=== PATIENT | female | born 1990 | race Caucasian/White ===

== ENCOUNTER 2018-05-15 23:41 | Inpatient (IN) ==
[2018-05-16] MEDS ORDERED: Sod Chloride 0.9% Inj 1,000 ML IV.CONT PRN (00:28)
[2018-05-16] MEDS ORDERED: Naloxone Inj 0.4 MG/ML Vial IV.PUSH PRN ×2 (00:28→02:04)
[2018-05-16] MEDS ORDERED: Sodium Chlor 0.9% Inj 500 ML IV.SIG PRN (00:28)
[2018-05-16] MEDS ORDERED: Oxytocin 30 Units/500ml Premix 30 UNITS/500 ML BAG IV.SIG ONE (00:28)
[2018-05-16] MEDS ORDERED: fentaNYL Citrate Inj 100 MCG/2 ML Ampul IV.PUSH PRN ×2 (00:28)
[2018-05-16] MEDS ORDERED: Penicillin G Potassium Inj 5,000,000 UNIT in Sodium Chloride 0.9% Inj 100 ML IV.SIG ONE (00:28)
[2018-05-16] MEDS ORDERED: Citric Acid/Sodium Citrate Liq 30 ML UDC PO SCH (00:30)
[2018-05-16] MEDS ORDERED: Lidocaine 1% Inj 50 ML Vial ONE (00:40)
--- NOTE | 2018-05-16 00:47 | P.HPOB ---
History of Present Illness Service: Obstetrics Primary Care Physician: NOT REQUIRED Dr. Harrison Chief Complaint: Labor History of Present Illness: 27-year-old white female para 1111 at 39 weeks 6 days. She began having 30 last night and comes in 8 cm dilated. Mother has a history of very fast deliveries. Weeks Gestation:: 39 - Inpatient Certification I certify that the inpatient services were ordered in accordance with Medicare regulations governing the order. This includes certification that hospital inpatient services are reasonable and necessary and in the case of services not specified as inpatient-only under 42 CFR 419.22(n), that they are appropriately provided as inpatient services in accordance to with the 2-midnight benchmark under 43 CFR 412.3(e) Review of Systems Constitutional no fevers chills. HEENT no visual changes no headaches Respiratory slight shortness of breath due to her advanced labor Cardiovascular no chest pain GI positive abdominal pain, positive nausea and vomiting just recently OB regular uterine contractions every 2-3 minutes she denies rupture of membranes or bleeding. Good movement Musculoskeletal no muscle aches ambulating well PMFSH - Medical / Surgical Hx Neg / Unobtainable Medical Problems Denied: Yes - Surgical History Surgical History: Surgical History (Last Updated 05/16/18 @ 00:42 by Beni Mercado MD) No history of previous surgery - Social History I have reviewed the patient's Social History: Yes - Tobacco History Second Hand Smoke Exposure: No Tobacco Use In Past 30 Days: No Smoking Status: Never smoker Medications and Allergies Allergies Allergy/AdvReac Type Severity Reaction Status Date / Time No Known Drug Allergies Allergy None Verified 05/16/18 00:29 Home Medications Medication Instructions Recorded Confirmed Type vit-iron fum-folic ac 1 tab PO DAILY 05/16/18 05/16/18 History [ Vitamin] Exam Vital signs: Vital Signs 05/16/18 00:07 Temperature 100.1 F H Pulse Rate 104 H Respiratory Rate 18 Blood Pressure 107/59 L - Constitutional moderate distress, average body habitus, cooperative - Routine HEENT Exam Head: Present: normocephalic, atraumatic - Routine Neck Exam Present: supple - Routine Respiratory Exam Present: CTA bilaterally - Routine Cardiovascular Exam Present: RRR, S1, S2 - Routine Abdominal Exam Present: soft, organomegaly - Routine Exam External: Present: normal urethra appearance Comments: Cervix is 8 cm complete vertex - Routine Neurological Exam Present: alert Results - Labs CBC & Chem 7: 05/16/18 00:20 Caprini VTE Risk Assessment Caprini VTE Risk Assessment: No/Low Risk (score <= 1) Caprini Risk Assessment Model: Point Value = 1 Point Value = 2 Point Value = 3 Point Value = 5 Age 41-60 Minor surgery BMI > 25 kg/m2 Swollen legs Varicose veins or History of unexplained or recurrent spontaneous Oral contraceptives or hormone replacement Sepsis (< 1 month) Serious lung disease, including pneumonia (< 1 month) Abnormal pulmonary function Acute myocardial infarction Congestive heart failure (< 1 month) History of inflammatory bowel disease Medical patient at bed rest Age 61-74 Arthroscopic surgery Major open surgery (> 45 min) Laparoscopic surgery (> 45 min) Malignancy Confined to bed (> 72 hours) Immobilizing plaster cast Central venous access Age >= 75 History of VTE Family history of VTE Factor V Leiden Prothrombin [id number] Lupus anticoagulant Anticardiolipin antibodies Elevated serum homocysteine Heparin-induced thrombocytopenia Other congenital or acquired thrombophilia Stroke (< 1 month) Elective arthroplasty Hip, pelvis, or leg fracture Acute spinal cord injury (< 1 month) Prophylaxis Regimen: Total Risk Factor Score Risk Level Prophylaxis Regimen 0-1 Low Early ambulation 2 Moderate Order ONE of the following: *Sequential Compression Device (SCD) *Heparin 5000 units SQ BID 3-4 Higher Order ONE of the following medications: *Heparin 5000 units SQ TID *Enoxaparin/Lovenox 40 mg SQ daily (WT < 150 kg, CrCl > 30 mL/min) *Enoxaparin/Lovenox 30 mg SQ daily (WT < 150 kg, CrCl > 10-29 mL/min) *Enoxaparin/Lovenox 30 mg SQ BID (WT < 150 kg, CrCl > 30 mL/min) AND/OR *Sequential Compression Device (SCD) 5 or more Highest Order ONE of the following medications: *Heparin 5000 units SQ TID (Preferred with Epidurals) *Enoxaparin/Lovenox 40 mg SQ daily (WT < 150 kg, CrCl > 30 mL/min) *Enoxaparin/Lovenox 30 mg SQ daily (WT < 150 kg, CrCl > 10-29 mL/min) *Enoxaparin/Lovenox 30 mg SQ BID (WT < 150 kg, CrCl > 30 mL/min) AND *Sequential Compression Device (SCD) Assessment and Plan - Plan 1. Intrauterine at 39 weeks 6 days 2. Advanced to labor 3. Positive GBS we will go ahead and start penicillin YOSEF 4. Thrombocytopenia her initial platelets were 150 follow-up at 28 weeks was 117 I would hold off on epidural till we get her platelets she will probably deliver before we get her platelet 5. 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 She has been seen by MFM this and everything appears normal 6. She does not vaccinate she does not want vitamin K or the erythromycin in the eyes I discussed this briefly with her and it seems that the entire team has discussed this with her. I spoke to Dr. Hernandez and she is on her way in
[2018-05-16 00:51] LABS: Baso % (Auto) 0.2 % (0.0-2.0); Eos % (Auto) 0.5 % (0.0-4.0); Hematocrit 36.8 % (35.0-46.0); Lymph # (Auto) 1.8 th/mm3 (1.0-4.8); Lymph % (Auto) 22.3 % (9.0-44.0); Mean Corpuscular HGB Conc 32.7 % (32.0-36.0); Mean Corpuscular Hemoglobin 25.2 pg (27.0-34.0); Mean Corpuscular Volume 77.2 fL (80.0-100.0); Mono # (Auto) 0.8 th/mm3 (0.0-0.9); Mono % (Auto) 9.4 % (0.0-8.0); Neut # (Auto) 5.4 th/mm3 (1.8-7.7); Neut % (Auto) 67.6 % (16.0-70.0); Platelet Count 106 th/mm3 (150-450); Red Blood Count 4.77 mil/mm3 (4.00-5.30); Red Cell Distribution Width 15.7 % (11.6-17.2)
[2018-05-16 00:59] LABS: Bacteria,Urine Rare /hpf; Bilirubin,Urine Negative (Negative); Clarity,Urine Cloudy (Clear); Color,Urine Yellow (Yellw/Straw); Glucose,Urine (UA) Negative (Negative); Leukocyte Esterase,Urine Moderate (Negative); Mucus,Urine Few /lpf (Occasional); Nitrite,Urine Negative (Negative); Specific Gravity,Urine 1.008 (1.002-1.035); Squamous Epithelial Cell,Urine 8 /hpf (0-5)
[2018-05-16 01:02] LABS: Amphetamine Urine With Conf Neg (Neg); Benzodiazepine Urine With Conf Neg (Neg)
--- NOTE | 2018-05-16 01:43 | P.OBDELI ---
Weeks Gestation: 39 Patient Started Active Labor: Yes Medical Induction of Labor: No Artificial Rupture of Membrane: Yes Anesthesia: None Episiotomy: none Vaginal Delivery: Normal Presentation: Occiput anterior Nuchal Cord: None Delayed Cord Clamping (45 sec): Yes Placenta: Spontaneous delivery, Intact Laceration: Perineal, 2 deg Repair: Chromic running (2-0) Estimated blood loss (mL): 400 : Male Male A score (1 min): 8 score (5 min): 8
[2018-05-16] MEDS ORDERED: Zolpidem Tartrate 5 MG Tablet PO PRN (02:04)
[2018-05-16] MEDS ORDERED: Witch Hazel 50%/Glyderin 12.5% 40 Pad Jar RECTAL PRN (02:04)
[2018-05-16] MEDS ORDERED: Bisacodyl 10 MG Supp RECTAL PRN (02:04)
[2018-05-16] MEDS ORDERED: Benzocaine 20% Top Spray 60 ML Can TOPICAL PRN (02:04)
[2018-05-16] MEDS ORDERED: Oxytocin 30 Units/500ml Premix 30 UNITS/500 ML BAG IV.CONT PRN (02:04)
[2018-05-16] MEDS ORDERED: Acetaminophen 325 MG Tablet PO PRN (02:04)
[2018-05-16] MEDS ORDERED: Penicillin G Potassium Inj 2,500,000 UNIT in Sodium Chlor 0.9% Inj 100 ML IV.SIG SCH (04:31)
[2018-05-16 07:16] LABS: Hematocrit 33.8 % (35.0-46.0); Mean Corpuscular HGB Conc 32.5 % (32.0-36.0); Mean Corpuscular Hemoglobin 25.4 pg (27.0-34.0); Mean Platelet Volume 10.7 fL (7.0-11.0); Platelet Count 103 th/mm3 (150-450); Red Blood Count 4.34 mil/mm3 (4.00-5.30); Red Cell Distribution Width 15.4 % (11.6-17.2); White Blood Count 11.9 th/mm3 (4.0-11.0)
--- NOTE | 2018-05-16 08:02 | P.PNOB ---
Subjective Post day: 0 Interval history: doing well, Objective Vital Signs/I&O: Vital Signs 05/16/18 00:07 05/16/18 01:27 05/16/18 01:35 Temperature 100.1 F H 99.0 F Pulse Rate 104 H 105 H Respiratory Rate 18 18 Blood Pressure 107/59 L 135/82 05/16/18 01:47 05/16/18 01:48 05/16/18 02:05 Temperature Pulse Rate 94 H 91 H Respiratory Rate 18 18 Blood Pressure 119/73 118/68 05/16/18 02:18 05/16/18 02:20 05/16/18 04:20 Temperature 99.5 F 98.4 F Pulse Rate 86 74 Respiratory Rate 18 20 Blood Pressure 123/80 123/65 Intake & Output 05/15/18 05/16/18 05/16/18 18:59 06:59 18:59 Weight 86.183 kg Result Diagrams: 05/16/18 07:04 Objective Remarks: GENERAL: Well-nourished, well-developed patient. CARDIOVASCULAR: Regular rate and rhythm without murmurs, gallops, or rubs. RESPIRATORY: Breath sounds equal bilaterally. No accessory muscle use. ABDOMEN/GI: Abdomen soft, non-tender. Fundus: Firm, non-tender at umbilicus. GENITOURINARY: Light to moderate bleeding. EXTREMITIES: No cyanosis or edema, non-tender, without signs of DVT. Medications and IVs: Active Medications Acetaminophen (Tylenol) 650 mg PO Q4H PRN PRN Reason: PAIN SCALE 1 TO 2 Al Hydroxide/Mg Hydroxide (Milk Of Magnesia Liq) 30 ml PO Q12H PRN PRN Reason: Mild Constipation Benzocaine (Americaine 20% Top [place]) 1 spray TOPICAL Q4H PRN PRN Reason: For Perineum Discomfort Last Admin: 05/16/18 03:24 Dose: 1 spray Bisacodyl (Dulcolax Supp) 10 mg RECTAL DAILY PRN PRN Reason: SEVERE CONSITIPATION Diphtheria/Pertussis/Tetanus Vacc (Boostrix Vaccine Inj) 0.5 ml IM .ONCE ONE Stop: 05/16/18 16:01 Oxytocin (Pitocin 30 Units/Ns 500 Ml Premix) 30 units in 500 mls @ 100 mls/hr IV.CONT UNSCH PRN PRN Reason: Heavy bleeding Last Admin: 05/16/18 01:35 Dose: 999 mls/hr Ibuprofen (Motrin) 800 mg PO Q8H PRN PRN Reason: For Cramping Lactulose (Lactulose Liq) 30 ml PO DAILY PRN PRN Reason: SEVERE CONSITIPATION Measles/Mumps/Rubella Vaccine Live (M-M-R Ii Vaccine Inj) 0.5 ml SQ .ONCE ONE Stop: 05/16/18 16:01 Naloxone HCl (Narcan Inj) 0.1 mg IV.PUSH Q2M PRN PRN Reason: for opiate reversal Ondansetron HCl (Zofran Odt) 4 mg PO Q6H PRN PRN Reason: NAUSEA OR VOMITING Oxycodone/Acetaminophen (Percocet 5/325 Mg) 1 tab PO Q4H PRN PRN Reason: PAIN SCALE 3 TO 5 Oxycodone/Acetaminophen (Percocet 5/325 Mg) 2 tab PO Q4H PRN PRN Reason: PAIN SCALE 6 TO 10 Senna/Docusate Sodium (Angelique-Colace) 1 tab PO BID [facility] Sennosides (Senokot) 17.2 mg PO Q12H PRN PRN Reason: Moderate Constipation Sodium Chloride (Ns Flush) 2 ml IV.FLUSH BID RALPH Sodium Chloride (Ns Flush) 2 ml IV.FLUSH PRN PRN PRN Reason: FLUSH AFTER USING IV ACCESS Witch Jolanta/Glycerin (Tucks Pads) 1 applicatio RECTAL QID PRN PRN Reason: HEMORRHOIDS Last Admin: 05/16/18 03:24 Dose: 1 applicatio Zolpidem Tartrate (Ambien) 5 mg PO HS PRN PRN Reason: SLEEP Assessment and Plan - Diagnosis (1) Vaginal delivery Code(s): O80 - Encounter for full-term uncomplicated delivery Status: Acute - Plan 1. Intrauterine at 39 weeks 6 days 2. Advanced to labor 3. Positive GBS we will go ahead and start penicillin YOSEF 4. Thrombocytopenia her initial platelets were 150 follow-up at 28 weeks was 117 I would hold off on epidural till we get her platelets she will probably deliver before we get her platelet 5. 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 She has been seen by M this and everything appears normal 6. She does not vaccinate she does not want vitamin K or the erythromycin in the eyes I discussed this briefly with her and it seems that the entire team has discussed this with her. I spoke to Dr. Hernandez and she is on her way in S/P PPD #0, male 05/16/18 Discharge Planning: day 2 PP - Attending Attestation pt seen by me
[2018-05-16] MEDS ORDERED: Diphtheria/Tetanus/Pertussis Vaccine Inj 0.5 ML Syringe IM ONE (16:00)
[2018-05-16] MEDS ORDERED: Measles/Mumps/Rubella Vaccine Inj 0.5 ML Vial SQ ONE (16:00)
[2018-05-16] MEDS: Senna/Docusate Sodium 8.6/50 MG Tablet PO SCH (20:24)
[2018-05-17] MEDS: Senna/Docusate Sodium 8.6/50 MG Tablet PO SCH ×2 (00:43→11:32)
--- NOTE | 2018-05-17 09:36 | P.PNOB ---
Subjective Post day: 1 Interval history: doing well, pt declined vit K for baby , her plts =103, not bleeding excessively but will hold off on circ for now, baby has heart murmur, peds will recheck in am Objective Vital Signs/I&O: Vital Signs 05/16/18 20:00 05/17/18 08:00 Temperature 99.1 F 97.6 F Pulse Rate 108 H 90 Respiratory Rate 18 20 Blood Pressure 113/60 96/52 L Result Diagrams: 05/16/18 07:04 Objective Remarks: GENERAL: Well-nourished, well-developed patient. CARDIOVASCULAR: Regular rate and rhythm without murmurs, gallops, or rubs. RESPIRATORY: Breath sounds equal bilaterally. No accessory muscle use. ABDOMEN/GI: Abdomen soft, non-tender. Fundus: Firm, non-tender at umbilicus. GENITOURINARY: Light to moderate bleeding. EXTREMITIES: No cyanosis or edema, non-tender, without signs of DVT. Medications and IVs: Active Medications Acetaminophen (Tylenol) 650 mg PO Q4H PRN PRN Reason: PAIN SCALE 1 TO 2 Al Hydroxide/Mg Hydroxide (Milk Of Magnesia Liq) 30 ml PO Q12H PRN PRN Reason: Mild Constipation Benzocaine (Americaine 20% Top [place]) 1 spray TOPICAL Q4H PRN PRN Reason: For Perineum Discomfort Last Admin: 05/16/18 03:24 Dose: 1 spray Bisacodyl (Dulcolax Supp) 10 mg RECTAL DAILY PRN PRN Reason: SEVERE CONSITIPATION Oxytocin (Pitocin 30 Units/Ns 500 Ml Premix) 30 units in 500 mls @ 100 mls/hr IV.CONT UNSCH PRN PRN Reason: Heavy bleeding Last Admin: 05/16/18 01:35 Dose: 999 mls/hr Ibuprofen (Motrin) 800 mg PO Q8H PRN PRN Reason: For Cramping Lactulose (Lactulose Liq) 30 ml PO DAILY PRN PRN Reason: SEVERE CONSITIPATION Naloxone HCl (Narcan Inj) 0.1 mg IV.PUSH Q2M PRN PRN Reason: for opiate reversal Ondansetron HCl (Zofran Odt) 4 mg PO Q6H PRN PRN Reason: NAUSEA OR VOMITING Oxycodone/Acetaminophen (Percocet 5/325 Mg) 1 tab PO Q4H PRN PRN Reason: PAIN SCALE 3 TO 5 Oxycodone/Acetaminophen (Percocet 5/325 Mg) 2 tab PO Q4H PRN PRN Reason: PAIN SCALE 6 TO 10 Senna/Docusate Sodium (Angelique-Colace) 1 tab PO BID [facility] Last Admin: 05/17/18 00:43 Dose: Not Given Sennosides (Senokot) 17.2 mg PO Q12H PRN PRN Reason: Moderate Constipation Sodium Chloride (Ns Flush) 2 ml IV.FLUSH BID [facility] Last Admin: 05/17/18 00:43 Dose: Not Given Sodium Chloride (Ns Flush) 2 ml IV.FLUSH PRN PRN PRN Reason: FLUSH AFTER USING IV ACCESS Witch Jolanta/Glycerin (Tucks Pads) 1 applicatio RECTAL QID PRN PRN Reason: HEMORRHOIDS Last Admin: 05/16/18 03:24 Dose: 1 applicatio Zolpidem Tartrate (Ambien) 5 mg PO HS PRN PRN Reason: SLEEP Assessment and Plan - Diagnosis (1) Vaginal delivery Code(s): O80 - Encounter for full-term uncomplicated delivery Status: Acute (2) Thrombocytopenia complicating Code(s): O99.119 - Other diseases of the blood and blood-forming organs and certain disorders involving the immune mechanism complicating , unspecified trimester; D69.6 - Thrombocytopenia, unspecified Status: Acute - Plan 1. Intrauterine at 39 weeks 6 days 2. Advanced to labor 3. Positive GBS we will go ahead and start penicillin YOSEF 4. Thrombocytopenia her initial platelets were 150 follow-up at 28 weeks was 117 I would hold off on epidural till we get her platelets she will probably deliver before we get her platelet 5. 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 She has been seen by M this and everything appears normal 6. She does not vaccinate she does not want vitamin K or the erythromycin in the eyes I discussed this briefly with her and it seems that the entire team has discussed this with her. I spoke to Dr. Hernandez and she is on her way in S/P PPD #1, male 05/17/18 post care, discharge in am Discharge Planning: day 2 PP - Attending Attestation pt seen by me
[2018-05-17 20:38] VITALS: TEMP 98.1
[2018-05-18] MEDS: Senna/Docusate Sodium 8.6/50 MG Tablet PO SCH (03:55)
[2018-05-18 07:48] VITALS: BP 108/76; PULSE 16; RESP 16
--- NOTE | 2018-05-18 10:06 | P.PNOB ---
Subjective Post day: 2 Interval history: doing well, ready for discharge, baby cleared by peds per pt Objective Vital Signs/I&O: Vital Signs 05/17/18 20:00 05/18/18 07:38 Temperature 98.1 F 98.1 F Pulse Rate 63 16 L Respiratory Rate 18 16 Blood Pressure 103/62 108/76 Result Diagrams: 05/16/18 07:04 Objective Remarks: GENERAL: Well-nourished, well-developed patient. CARDIOVASCULAR: Regular rate and rhythm without murmurs, gallops, or rubs. RESPIRATORY: Breath sounds equal bilaterally. No accessory muscle use. ABDOMEN/GI: Abdomen soft, non-tender. Fundus: Firm, non-tender at umbilicus. GENITOURINARY: Light to moderate bleeding. EXTREMITIES: No cyanosis or edema, non-tender, without signs of DVT. Medications and IVs: Active Medications Acetaminophen (Tylenol) 650 mg PO Q4H PRN PRN Reason: PAIN SCALE 1 TO 2 Al Hydroxide/Mg Hydroxide (Milk Of Magnesia Liq) 30 ml PO Q12H PRN PRN Reason: Mild Constipation Benzocaine (Americaine 20% Top Berry) 1 spray TOPICAL Q4H PRN PRN Reason: For Perineum Discomfort Last Admin: 05/16/18 03:24 Dose: 1 spray Bisacodyl (Dulcolax Supp) 10 mg RECTAL DAILY PRN PRN Reason: SEVERE CONSITIPATION Oxytocin (Pitocin 30 Units/Ns 500 Ml Premix) 30 units in 500 mls @ 100 mls/hr IV.CONT UNSCH PRN PRN Reason: Heavy bleeding Last Admin: 05/16/18 01:35 Dose: 999 mls/hr Ibuprofen (Motrin) 800 mg PO Q8H PRN PRN Reason: For Cramping Lactulose (Lactulose Liq) 30 ml PO DAILY PRN PRN Reason: SEVERE CONSITIPATION Naloxone HCl (Narcan Inj) 0.1 mg IV.PUSH Q2M PRN PRN Reason: for opiate reversal Ondansetron HCl (Zofran Odt) 4 mg PO Q6H PRN PRN Reason: NAUSEA OR VOMITING Oxycodone/Acetaminophen (Percocet 5/325 Mg) 1 tab PO Q4H PRN PRN Reason: PAIN SCALE 3 TO 5 Oxycodone/Acetaminophen (Percocet 5/325 Mg) 2 tab PO Q4H PRN PRN Reason: PAIN SCALE 6 TO 10 Senna/Docusate Sodium (Angelique-Colace) 1 tab PO BID [facility] Last Admin: 05/18/18 03:55 Dose: Not Given Sennosides (Senokot) 17.2 mg PO Q12H PRN PRN Reason: Moderate Constipation Sodium Chloride (Ns Flush) 2 ml IV.FLUSH BID [facility] Last Admin: 05/18/18 03:55 Dose: Not Given Sodium Chloride (Ns Flush) 2 ml IV.FLUSH PRN PRN PRN Reason: FLUSH AFTER USING IV ACCESS Witch Jolanta/Glycerin (Tucks Pads) 1 applicatio RECTAL QID PRN PRN Reason: HEMORRHOIDS Last Admin: 05/16/18 03:24 Dose: 1 applicatio Zolpidem Tartrate (Ambien) 5 mg PO HS PRN PRN Reason: SLEEP Assessment and Plan - Diagnosis (1) Vaginal delivery Code(s): O80 - Encounter for full-term uncomplicated delivery Status: Acute (2) Thrombocytopenia complicating Code(s): O99.119 - Other diseases of the blood and blood-forming organs and certain disorders involving the immune mechanism complicating , unspecified trimester; D69.6 - Thrombocytopenia, unspecified Status: Acute - Plan 1. Intrauterine at 39 weeks 6 days 2. Advanced to labor 3. Positive GBS we will go ahead and start penicillin YOSEF 4. Thrombocytopenia her initial platelets were 150 follow-up at 28 weeks was 117 I would hold off on epidural till we get her platelets she will probably deliver before we get her platelet 5. 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 She has been seen by M this and everything appears normal 6. She does not vaccinate she does not want vitamin K or the erythromycin in the eyes I discussed this briefly with her and it seems that the entire team has discussed this with her. I spoke to Dr. Hernandez and she is on her way in S/P PPD #2, male 05/18/18 post care, discharge today circ not done since mom declined vit K and has h/o plts =103 Discharge Planning: day 2 PP - Attending Attestation pt seen by me
== END 2018-05-18 11:00 | disposition home or self-care (01) ==
LOC: HOBED 23:41 → H2E 05-16 00:16 → H1EA 05-16 02:50
PROVIDERS: ADMIT Obstetrics & Gynecology; ATTEND Obstetrics & Gynecology